=== PATIENT | female | born 1950 | race Caucasian/White ===

== ENCOUNTER 2017-12-12 12:06 | Emergency (ER) | payer MEDICARE, OTHER, SELFPAY ==
[2017-12-12 12:08] VITALS: BP 130/63; PULSE 74; RESP 20; TEMP 37.1; O2SAT 98; BMI 33.2
--- NOTE | 2017-12-12 12:21 | RAD_ITS ---
STUDY: X-RAY CHEST REASON FOR EXAM: Female, 67 years old. Acute syncopal episode. TECHNIQUE: Single AP portable view of the chest. COMPARISON: None. FINDINGS: EKG electrodes are seen. The lungs are clear and expanded. There is no demonstrated pleural abnormality. Normal size heart. Normal mediastinum and micheal. Normal visualized pulmonary arteries. There is atherosclerotic tortuosity of the aortic arch and descending thoracic aorta. Normal visualized thoracic spine. Normal visualized ribs, clavicles, and shoulders. There is no demonstrated abnormality of the visualized soft tissue structures of the upper abdomen. RAD/Chest 1 View IMPRESSION: Normal x-ray examination of the chest. Electronically Signed: Demarcus Botello MD at 13:22 EDT Tel [phone], Service support ,
--- NOTE | 2017-12-12 12:21 | EKG12_ITS ---
Test Reason : SYNCOPE Blood Pressure : / mmHG Vent. Rate : 072 BPM Atrial Rate : 072 BPM P-R Int : 106 ms QRS Dur : 084 ms QT Int : 344 ms P-R-T Axes : 011 -13 -11 degrees QTc Int : 376 ms Sinus rhythm with short NM Inferior infarct , age undetermined Abnormal ECG Confirmed by SWETA COLEMAN, GREY ([id number]), science editor OLEG AHMADI ([id number]) on 12/16/2017 2:48:38 PM Referred By: BOBBY/[email or web address] Confirmed By:GREY SOL MD
--- NOTE | 2017-12-12 12:21 | CT_ITS ---
STUDY: CT BRAIN WITHOUT CONTRAST REASON FOR EXAM: Female, 67 years old. Syncopal episodes. RADIATION DOSAGE (If Supplied By Facility): CTDIvol = ( 60.81 ) mGy, DLP = ( 1021.47 ) mGycm TECHNIQUE: Transaxial CT imaging of the brain was performed without administration of intravenous contrast material. Individualized dose optimization techniques were used for this CT. COMPARISON: None. FINDINGS: Normal soft tissue structures. Normal calvarium. There is mild cerebral atrophy with widening of the extra-axial spaces and ventricular dilatation. There are areas of decreased attenuation within the white matter tracts of the supratentorial brain, consistent with microvascular disease changes. 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 Normal basal ganglia and thalami. Normal brainstem. There is mild cerebellar atrophy. There is no intracranial hemorrhage. There are no findings of an acute ischemic infarction. Nodular mucosal thickening of the left maxillary sinus. Mucosal thickening of the ethmoid sinus. CT/Brain/Head without Contrast IMPRESSION: Chronic involutional changes of the brain. 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 Electronically Signed: Demarcus Botello MD at 13:25 EDT Tel [phone], Service support ,
[2017-12-12 12:31] LABS: Absolute Lymphocyte Count 2.16 X10^3/ul (0.83-4.51); Absolute Neutrophil Count 3.9 X10^3/uL (2.0-7.7); Basophil# 0.01 X10^3/uL; Basophil% 0.2 % (0-1); Eosinophils% 1.5 % (0-5); Hematocrit 43.5 % (37-47); Hemoglobin 14.4 g/dl (12.0-15.0); Lymphocyte # 2.16 X10^3/ul (4.0); Lymphocyte % 32.5 % (19-41); Mean Corp Hgb Conc 33.1 g/gl (32-36); Mean Corpuscular Hgb 29.5 pg (27.0-32.0); Mean Corpuscular Volume 89.1 fL (81-99); Mean Platelet Vol. 10.1 fl (6.2-12.0); Monocyte# 0.47 X10^3/uL; Monocyte% 7.1 % (0-10); Neutrophil % 58.5 % (47-70); Platelet Count 211 K/mm3 (150-450); RBC Distribution Width CV 13.2 % (11.6-14.6); Red Blood Count 4.88 M/mm3 (4.2-5.4); White Blood Count 6.7 K/mm3 (4.4-11.0)
[2017-12-12 12:32] LABS: POSITIVE COUNT NO; POSITIVE DIFFERENTIAL NO; POSITIVE MORPHOLOGY NO
--- NOTE | 2017-12-12 12:33 | ED.VISSUMM ---
- ER Visit Summary Date of Service: 12/12/17 Chief Complaint: Syncope History of Present Illness: The patient is a 67 F who was at graduation this morning. She was feeling hot and unwell and passed out for less than a minute. She made a grimacing motion with her face and her eyes rolled back in her head. She woke up spontaneously within a minute. No postictal period. She does not remember the event. She had this years ago, but nothing since. She has a history of high blood pressure, high cholesterol, hypothyroidism, osteoarthritis, and IBS. No chest pain or shortness of breath. No history of heart disease or PE. No abdominal pain, back pain, headache. No weakness or numbness. No bleeding. Physical Examination: Afebrile and vital signs unremarkable. Head and neck atraumatic. Heart regular. Lungs clear. Abdomen soft. Skin normal in color. Calves soft and supple. No focal or lateralizing neurologic abnormalities. Test Results: EKG shows sinus rhythm at a rate of 72. No sign of acute infarction pattern. Will check basic labs, chest x-ray, CT, and orthostatic vital signs. Emergency Department Course and Treatment: Was monitored and received IV fluids while awaiting results. EG showed sinus rhythm rate of 72. No sign of infarction pattern. She was placed on a monitor. Orthostatics negative. She was treated with IV fluids. CBC, BMP, troponin normal. Chest x-ray showed no acute abnormalities. CT had showed chronic changes including a possible old infarct. Nothing acute. Patient had no further events or symptoms in the emergency department. I suspect this is vasovagal syncope. I explained that I cannot rule out all etiologies of syncope, but she would like to go home. Patient will return for any new or worsening symptoms. Follow up with her doctor later this week for recheck. Treatment Plan: As above Disposition: Discharged Impression: 1. Syncope This note was generated with [employer] dictation software. It may contain incorrect words, spelling, and punctuation that were not noted in review of the chart prior to signing ED Disposition - Plan for ED Patient: Chief Complaint: Syncope Referrals: [facility] Doctor,Out of [NON-STAFF] -
[2017-12-12 12:49] LABS: Anion Gap 11 (5-15); BUN 13 mg/dL (7-18); Calcium,Total 9.3 mg/dL (8.5-10.1); Chloride 107 mmol/L (98-107); Creatinine, Serum 0.93 mg/dL (0.55-1.02); EST Glomerular Filtration Rate 64 mL/min (>60); Est Glom Filt Rate - Afr Amer 77 mL/min (>60); Glucose 113 mg/dL (74-106); Potassium 3.7 mmol/L (3.5-5.1); Sodium Level 139 mmol/L (136-145)
[2017-12-12 13:12] LABS: Partial Thromboplast Time 25.5 Seconds (24.1-36.2); Prothrombin Time (Protime)PT. 13.3 SECONDS (11.7-14.9)
[2017-12-12 13:14] VITALS: BP 139/89; PULSE 73; RESP 22; O2SAT 98
[2017-12-12] MEDS: 0.9% Normal Saline 1,000 ML 999 ML IV (13:14)
[2017-12-12 14:05] VITALS: BP 135/83; BP 142/87; BP 146/87; PULSE 62; PULSE 70; PULSE 71
--- NOTE | 2017-12-12 15:12 | ED.DEP ---
ED Disposition - Plan for ED Patient: Chief Complaint: Syncope Instructions: ED Fainting Unkn Cause Referrals: [facility],Out of [NON-STAFF] -
[2017-12-12 15:25] VITALS: BP 140/91; PULSE 63; RESP 16; O2SAT 96
--- NOTE | 2017-12-12 15:26 | ED.RN ---
REVIEWED D/C INSTRUCTIONS FOLLOW UP CARE, AND S/S THAT WOULD WARRANT A RETURN TO THE ED WITH PT. PT VERBALIZED AN UNDERSTANDING AND DENIES FURTHER QUESTIONS FOR THIS RN. PT SKIN P/W/D, RESP EVEN AND UNLABORED, PT A&O X 3, NO DISTRESS NOTED. PT AMBULATED OUT OF ED, GAIT STEADY.
== END 2017-12-12 15:27 | disposition home or self-care (01) ==
PROVIDERS: Emergency Provider Emergency Medicine
DX: R55 Syncope and collapse (principal); I10 Essential (primary) hypertension; E03.9 Hypothyroidism, unspecified; E78.00 Pure hypercholesterolemia, unspecified; M19.90 Unspecified osteoarthritis, unspecified site; Z79.82 Long term (current) use of aspirin; Z79.899 Other long term (current) drug therapy
CPT/HCPCS: 70450; 71045; 80048; 84484; 85025; 85610; 85730; 93005; 96360; 96361; 99285; J7030; A4216